=== PATIENT | male | born 1955 | race African-American/Black ===

== ENCOUNTER 2017-08-28 12:54 | Emergency (ER) | payer SELFPAY ==
[~2017-08-28] VITALS: Ht 172.7 cm; Wt 109.1 kg
[~2017-08-28 12:54] MED LIST: BUPR100 PO; CYCL10 PO; FAMO20 PO; GABA-531 PO; INSU500V SQ; LISI-660 PO; LORA2TAB2 PO; METF500T4 PO; OLAN2.5T3 PO; RISP1 PO; SERT50TA12 PO; SIMV5TAB6 PO
[2017-08-28 13:22] LABS: GLUCOSE,POINT OF CARE 102 MG/DL (70-110)
[2017-08-28 13:27] LABS: BASOPHILS % (AUTO) 0.4 % (0.0-2.0); EOSINOPHILS % (AUTO) 0.7 % (1.0-6.0); HEMATOCRIT 42.2 % (41-53); HEMOGLOBIN 13.9 g/dL (13.5-17.5); LYMPHOCYTES # (AUTO) 0.6 K/uL (1.0-4.8); LYMPHOCYTES % (AUTO) 14.7 % (22.0-44.0); MEAN CORPUSCULAR HEMOGLOBIN 27.4 pg (26.0-34.0); MEAN CORPUSCULAR VOLUME 83 fL (80-100); MONOCYTES # (AUTO) 0.3 K/uL (0.1-1.0); MONOCYTES % (AUTO) 6.4 % (2.0-9.0); NEUTROPHILS # (AUTO) 3.4 K/uL (1.8-7.7); NEUTROPHILS % (AUTO) 77.8 % (40.0-70.0); PLATELET COUNT (AUTO) 302 K/uL (150-450); RED BLOOD CELL COUNT(AUTO) 5.09 MIL/uL (4.50-5.90); WHITE BLOOD COUNT (AUTO) 4.3 K/uL (4.5-11.0)
[2017-08-28 13:50] LABS: ANION GAP 11 mmol/L (8-16); CALCIUM, TOTAL 9.2 mg/dL (8.8-10.5); CARBON DIOXIDE 26 mmol/L (22-29); CHLORIDE 107 mmol/L (98-107); CREATININE 1.36 mg/dL (0.60-1.30); GLOMERULAR FILTR. RATE CALC > 60 mL/min (>60); POTASSIUM 4.3 mmol/L (3.5-5.1); SODIUM SERUM 144 mmol/L (136-145); UREA NITROGEN, BLOOD 17 mg/dL (7-18)
[2017-08-28 13:56] LABS: ALANINE AMINOTRANSFERASE 21 U/L (12-78); ALBUMIN 3.8 g/dL (3.4-5.0); ASPARTATE AMINOTRANSFERASE 13 U/L (15-37); BILIRUBIN,TOTAL 0.3 mg/dL (0.1-1.0); TOTAL PROTEIN, SERUM 8.2 g/dL (6.4-8.2)
[2017-08-28] MEDS ORDERED: OLANZapine 5 MG TABLET PO ONE (15:45)
[2017-08-28 16:37] VITALS: BP 121/86
== END 2017-08-28 16:49 | disposition home or self-care (01) ==
LOC: EMS 12:56
DX: F20.9 Schizophrenia, unspecified (principal); F32.9 Major depressive disorder, single episode, unspecified; F41.9 Anxiety disorder, unspecified; J45.909 Unspecified asthma, uncomplicated; I10 Essential (primary) hypertension; E11.9 Type 2 diabetes mellitus without complications; E78.00 Pure hypercholesterolemia, unspecified; K21.9 Gastro-esophageal reflux disease without esophagitis
CPT/HCPCS: 36415; 80053; 80307; 82948; 82962; 85025; 99284; G0480